=== PATIENT | female | born 1975 | race Caucasian/White ===

== ENCOUNTER → 2020-03-13 12:51 | Outpatient (CLI) | payer OTHER, SELFPAY ==
--- NOTE | ~2020-03-13 | MM_ITS ---
EXAMINATION: MM screening [facility] BI w neil HISTORY: Screening TECHNIQUE: Craniocaudal and mediolateral oblique 3-D tomosynthesis images were obtained and synthetic 2-D images were generated. CAD analysis was submitted and interpreted. COMPARISON: Comparison to multiple prior studies sequentially, with oldest reviewed study dated 12/2018. BREAST PARENCHYMAL COMPOSITION: There are scattered areas of fibroglandular density. FINDINGS: There is no evidence of suspicious mass, calcification, or architectural distortion to sugg est malignancy in either breast. There has been no suspicious interval change. IMPRESSION: 1. No mammographic evidence of malignancy. 2. Recommend routine screening mammography in one year. BI-RADS Category 2: Benign finding(s). Reviewed, dictated and finalized at location A.
== END ==
PROVIDERS: PCP Internal Medicine; Visit Provider Obstetrics & Gynecology
DX: Z12.31 Encounter for screening mammogram for malignant neoplasm of breast (principal)
CPT/HCPCS: 77063; 77067

== ENCOUNTER 2020-08-16 08:30 | Outpatient (CLI) | payer OTHER, SELFPAY ==
--- NOTE | 2020-08-17 12:30 | WPDHOLTEREM ---
Holter/Event Monitor Holter/Event Monitor Date of procedure: 08/16/20 Procedure Type: 24 hour holter monitor Indications: Palpitations Conclusion: 1. 24 hour holter monitor on 08/16/20. 2. Underlying rhythm is sinus rhythm. HR range 54-136 bpm; average HR 84 bpm. 3. No premature supraventricular complexes. No supraventricular tachycardia. 4. There are 470 premature ventricular complexes and 29 ventricular trigeminy. No ventricular tachycardia. 5. No sinoatrial or atrioventricular blocks. No significant pauses greater than 2 seconds. 6. Patient reports symptoms of flutter which demonstrate sinus rhythm, HR range 70-112 bpm.
== END 2020-08-16 08:31 | disposition home or self-care (01) ==
PROVIDERS: PCP Internal Medicine; Visit Provider Physician Assistant
DX: R00.2 Palpitations (principal)
CPT/HCPCS: 93225; 93226

== ENCOUNTER → 2021-04-02 16:18 | Outpatient (CLI) | payer BC, SELFPAY ==
--- NOTE | ~2021-04-02 | MM_ITS ---
EXAMINATION: MM screening [facility] BI w neil HISTORY: Screening TECHNIQUE: Craniocaudal and mediolateral oblique 3-D tomosynthesis images were obtained and synthetic 2-D images were generated. CAD analysis was submitted and interpreted. COMPARISON: Comparison to multiple prior studies sequentially, with oldest reviewed study dated 12/2018. BREAST PARENCHYMAL COMPOSITION: There are scattered areas of fibroglandular density. FINDINGS: There is no evidence of suspicious mass, calcification, or architectural distortion to sugg est malignancy in either breast. There has been no suspicious interval change. IMPRESSION: 1. No mammographic evidence of malignancy. 2. Recommend routine screening mammography in one year. BI-RADS Category 1: Negative Reviewed, dictated and finalized at location A.
== END ==
PROVIDERS: PCP Internal Medicine; Visit Provider Obstetrics & Gynecology
DX: Z12.31 Encounter for screening mammogram for malignant neoplasm of breast (principal)
CPT/HCPCS: 77063; 77067

== ENCOUNTER 2021-05-01 09:53 | Outpatient (CLI) | payer BC, SELFPAY ==
--- NOTE | 2021-05-01 12:00 | NEURO_ITS ---
Impression: # Complains of numbness of hands; History of cervical surgery. # Mild bilateral Carpal Tunnel Syndrome. # Left ulnar neuropathy across the elbow. # Normal needle/EMG exam. Nerve Conduction Studies Anti Sensory Summary Table Stim Site NR Peak (ms) P-T Amp (?V) Site1 Site2 Delta-P (ms) Dist (cm) Jules (m/s) Left Median Anti Sensory (2-3nd Digit) Wrist 3.4 74.9 Wrist 2-3nd Digit 3.4 14.0 41 Wrist 3.4 87.5 Wrist 2-3nd Digit 3.4 14.0 41 Right Median Anti Sensory (2-3nd Digit) Wrist 3.1 73.9 Wrist 2-3nd Digit 3.1 14.0 45 Wrist 3.1 46.1 Wrist 2-3nd Digit 3.1 14.0 45 Left Radial Anti Sensory (Base 1st Digit) Wrist 2.1 28.5 Wrist Base 1st Digit 2.1 0.0 Right Radial Anti Sensory (Base 1st Digit) Wrist 2.2 19.3 Wrist Base 1st Digit 2.2 0.0 Left Ulnar Anti Sensory (5th Digit) Wrist 2.4 87.3 Wrist 5th Digit 2.4 14.0 58 Right Ulnar Anti Sensory (5th Digit) Wrist 2.3 37.4 Wrist 5th Digit 2.3 14.0 61 Motor Summary Table Stim Site NR Onset (ms) O-P Amp (mV) Site1 Site2 Delta-0 (ms) Dist (cm) Jules (m/s) Left Median Motor (Abd Poll Brev) Wrist 4.0 2.7 Elbow Wrist 4.4 28.0 64 Elbow 8.4 5.6 Right Median Motor (Abd Poll Brev) Wrist 4.0 3.1 Elbow Wrist 4.4 28.0 64 Elbow 8.4 4.5 Left Ulnar Motor (Abd Dig Minimi) Wrist 2.7 7.9 A Elbow Wrist 6.4 27.0 42 A Elbow 9.1 5.0 B Elbow Wrist 4.5 24.0 53 B Elbow 7.2 5.2 Right Ulnar Motor (Abd Dig Minimi) Wrist 2.8 8.5 A Elbow Wrist 4.9 29.0 59 A Elbow 7.7 4.4 F Wave Studies NR F-Lat (ms) L-R F-Lat (ms) Left Median (Mrkrs) (Abd Poll Brev) 27.82 0.78 Right Median (Mrkrs) (Abd Poll Brev) 27.04 0.78 Left Ulnar (Mrkrs) (Abd Dig Min) 27.45 0.96 Right Ulnar (Mrkrs) (Abd Dig Min) 26.48 0.96 EMG Side Muscle Nerve Root Ins Act Fibs Amp Dur Recrt Comment Right 1stDorInt Ulnar C8-T1 Nml Nml Nml Nml Nml Right Ext Indicis Radial (Post Int) C7-8 Nml Nml Nml Nml Nml Right Ext Digitorum Radial (Post Int) C7-8 Nml Nml Nml Nml Nml Right BrachioRad Radial C5-6 Nml Nml Nml Nml Nml Right PronatorTeres Median C6-7 Nml Nml Nml Nml Nml Right Abd Poll Brev Median C8-T1 Nml Nml Nml Nml Nml Left 1stDorInt Ulnar C8-T1 Nml Nml Nml Nml Nml Left Ext Indicis Radial (Post Int) C7-8 Nml Nml Nml Nml Nml Left Ext Digitorum Radial (Post Int) C7-8 Nml Nml Nml Nml Nml Left BrachioRad Radial C5-6 Nml Nml Nml Nml Nml Left PronatorTeres Median C6-7 Nml Nml Nml Nml Nml Left Abd Poll Brev Median C8-T1 Nml Nml Nml Nml Nml MTDD
== END 2021-05-01 09:54 | disposition home or self-care (01) ==
PROVIDERS: PCP Internal Medicine; Visit Provider Physician Assistant
DX: R20.2 Paresthesia of skin (principal); G56.03 Carpal tunnel syndrome, bilateral upper limbs; G56.22 Lesion of ulnar nerve, left upper limb
CPT/HCPCS: 95886; 95911

== ENCOUNTER 2021-07-08 14:02 | Outpatient (CLI) | payer BC, SELFPAY ==
[2021-07-08 15:09] LABS: SARS-CoV-2 RNA PCR Positive (Negative)
== END 2021-07-08 14:03 | disposition home or self-care (01) ==
LOC: CHSLAB 14:04
PROVIDERS: PCP Internal Medicine; Visit Provider Internal Medicine
DX: U07.1 COVID-19 (principal); R43.2 Parageusia
CPT/HCPCS: C9803; U0003; U0005

== ENCOUNTER 2021-07-11 07:41 | Outpatient (RCR) | payer BC, SELFPAY ==
[2021-07-11 10:04] VITALS: BP 118/84; PULSE 85; RESP 20; TEMP 36.8; O2SAT 100
[2021-07-11] MEDS: FAMOTIDINE 20 MG TABLET PO (10:05)
[2021-07-11] MEDS: ACETAMINOPHEN 325 MG TABLET 650 MG PO (10:05)
[2021-07-11] MEDS: diphenhydrAMINE HCl CAP 25 MG CAPSULE PO (10:05)
[2021-07-11 11:34] VITALS: BP 131/79
--- NOTE | 2021-07-12 08:48 | PC.NURSE ---
Called Jw ang she stated she is not feeling much different than yesterday. She has no questions at this time.
== END 2021-07-11 17:00 ==
LOC: AMCINF 07:41
PROVIDERS: PCP Internal Medicine; Visit Provider Internal Medicine Hematology & Oncology
DX: U07.1 COVID-19 (principal)
CPT/HCPCS: A9270; M0245; Q0245

== ENCOUNTER → 2021-12-16 07:57 | Outpatient (CLI) | payer BC, SELFPAY ==
--- NOTE | ~2021-12-16 | US_ITS ---
EXAMINATION: US thyroid DATE: 12/16/2021 08:36 INDICATION: Nontoxic single thyroid nodule. TECHNIQUE: Multiple ultrasound images of the thyroid were obtained. COMPARISON: Ultrasound 10/04/2018 FINDINGS: The right thyroid lobe measures 5.6 x 1.3 x 1.6 cm. The left thyroid lobe measures 6.6 x 1.4 x 1.4 c m. In the left thyroid lobe, there are 3 mm and 4 mm nodules. In the right thyroid lobe, there is a 6 mm solid, isoechoic, [id number]-lhap-[id number] nodule with ill-defined margin without echogenic foci (TI-RADS TR3). In the right thyroid lobe, there is a 3 mm nodule. IMPRESSION: 1. Small thyroid nodules, likely not clinically significant. No follow-up is needed. Reviewed, dictated and finalized at location B. IMPRESSION: 1. Small thyroid nodules, likely not clinically significant. No follow-up is ne eded.
== END ==
PROVIDERS: PCP Internal Medicine; Visit Provider Internal Medicine
DX: E04.1 Nontoxic single thyroid nodule (principal)
CPT/HCPCS: 76536

== ENCOUNTER → 2022-06-23 13:21 | Outpatient (CLI) | payer BC, SELFPAY ==
--- NOTE | ~2022-06-23 | MM_ITS ---
EXAMINATION: MM screening [facility] BI w neil HISTORY: Screening mammogram TECHNIQUE: Craniocaudal and mediolateral oblique 3-D tomosynthesis images were obtained and synthetic 2-D images were generated. CAD analysis was submitted and interpreted. COMPARISON: 04/02/2021, 03/13/2020 bilateral screening mammogram examinations 09/23/2018, complete right breast ultrasound BREAST PARENCHYMAL COMPOSITION: There are scattered areas of fibroglandular density. FINDINGS: Stable probable intramammary lymph node, outer mid right breast, unchanged since 09/23/2018. There is no evidence of suspicious mass, calcification, or architectural distortion to suggest malig susana in either breast. There has been no suspicious interval change. IMPRESSION: 1. No mammographic evidence of malignancy. 2. Recommend routine screening mammography in one year. BI-RADS Category 2: Benign finding(s). Reviewed, dictated and finalized at location A. HIATRIC REGISTERED NURSE
== END ==
PROVIDERS: PCP Internal Medicine; Visit Provider Obstetrics & Gynecology
DX: Z12.31 Encounter for screening mammogram for malignant neoplasm of breast (principal)
CPT/HCPCS: 77063; 77067

== ENCOUNTER 2023-08-18 12:23 | Outpatient (CLI) | payer BC, SELFPAY ==
--- NOTE | ~2023-08-18 | MM_ITS ---
EXAMINATION: MM screening [facility] BI w neil HISTORY: Screening TECHNIQUE: Craniocaudal and mediolateral oblique 3-D tomosynthesis images were obtained and synthetic 2-D images were generated. CAD analysis was submitted and interpreted. COMPARISON: Comparison to multiple prior studies sequentially, with oldest reviewed study dated 12/2018. BREAST PARENCHYMAL COMPOSITION: Breast composed of scattered areas of fibroglandular density FINDINGS: There is no evidence of suspicious mass, calcification, or architectural distortion to sugg est malignancy in either breast. There has been no suspicious interval change. IMPRESSION: 1. No mammographic evidence of malignancy. 2. Recommend routine screening mammography in one year. BI-RADS Category 1: Negative Reviewed, dictated and finalized at location A. RPRISE INTEGRATION ARCHITECT
== END 2023-08-18 12:24 | disposition home or self-care (01) ==
LOC: CHSIMG 12:25
PROVIDERS: PCP Internal Medicine; Visit Provider Obstetrics & Gynecology
DX: Z12.31 Encounter for screening mammogram for malignant neoplasm of breast (principal)
CPT/HCPCS: 77063; 77067

== ENCOUNTER 2024-01-22 14:38 | Outpatient (CLI) | payer BC, SELFPAY ==
--- NOTE | ~2024-01-22 | XR_ITS ---
EXAMINATION: XR lumbar spine 2-3V DATE: 01/22/2024 15:00 INDICATION: Low back pain. TECHNIQUE: 3 views of lumbar spine were obtained. COMPARISON: None. FINDINGS: Bone alignment is normal. Vertebral body heights are normal. There is mildly decreased disc height at L3-L4 and L4-L5 and moderately decreased disc height at L5-S1. There is multilevel facet j oint osteoarthritis, moderate in lower lumbar spine. There is an intrauterine device in expected posi tion. IMPRESSION: 1. Moderate lumbar spondylosis. Reviewed, dictated and finalized at location E.
== END 2024-01-22 14:39 | disposition home or self-care (01) ==
LOC: CHSIMG 14:40
PROVIDERS: PCP Internal Medicine; Visit Provider Internal Medicine
DX: M54.9 Dorsalgia, unspecified (principal); M43.06 Spondylolysis, lumbar region
CPT/HCPCS: 72100

== ENCOUNTER 2024-03-15 08:26 | Outpatient (CLI) | payer OTHER, SELFPAY ==
--- NOTE | ~2024-03-15 | US_ITS ---
EXAMINATION: US thyroid DATE: 03/15/2024 08:50 INDICATION: Multiple thyroid nodules. TECHNIQUE: Multiple ultrasound images of the thyroid were obtained. COMPARISON: Ultrasound 12/16/2021 FINDINGS: The right thyroid lobe measures 5.2 x 1.4 x 1.5 cm. The left thyroid lobe measures 5.8 x 1.5 x 1.2 c m. In the right thyroid lobe, there is a 6 mm solid, isoechoic, wider than tall nodule with irregula r margin without echogenic foci (TI-RADS TR4). In the left thyroid lobe, there is a 5 mm almost entir narendra cystic nodule (TR1). In the left thyroid lobe, there is a 4 mm nodule. IMPRESSION: 1. Small thyroid nodules, likely not clinically significant. No follow-up is needed. Reviewed, dictated and finalized at location A. IMPRESSION: 1. Small thyroid nodules, likely not clinically significant. No follow-up is ne eded.
== END 2024-03-15 08:27 | disposition home or self-care (01) ==
LOC: CHSIMG 08:29
PROVIDERS: PCP Registered Nurse; Visit Provider Nurse Practitioner Family
DX: E04.2 Nontoxic multinodular goiter (principal)
CPT/HCPCS: 76536

== ENCOUNTER 2024-08-31 08:21 | Outpatient (CLI) | payer OTHER, SELFPAY ==
--- NOTE | ~2024-08-31 | MM_ITS ---
EXAMINATION: MM screening [facility] BI w neil HISTORY: Screening TECHNIQUE: Craniocaudal and mediolateral oblique 3-D tomosynthesis images were obtained and synthetic 2-D images were generated. CAD analysis was submitted and interpreted. COMPARISON: Comparison to multiple prior studies sequentially, with oldest reviewed study dated 12/2018. BREAST PARENCHYMAL COMPOSITION: Not dense: There are scattered areas of fibroglandular density. FINDINGS: There is no evidence of suspicious mass, calcification, or architectural distortion to sugg est malignancy in either breast. There has been no suspicious interval change. IMPRESSION: 1. No mammographic evidence of malignancy. 2. Recommend routine screening mammography in one year. BI-RADS Category 1: Negative Reviewed, dictated and finalized at location A. SH VISITOR
== END 2024-08-31 08:22 | disposition home or self-care (01) ==
LOC: CHSIMG 08:22
PROVIDERS: PCP Registered Nurse; Visit Provider Obstetrics & Gynecology
DX: Z12.31 Encounter for screening mammogram for malignant neoplasm of breast (principal)
CPT/HCPCS: 77063; 77067

== ENCOUNTER 2024-09-14 07:26 | Outpatient (CLI) | payer OTHER, SELFPAY ==
--- NOTE | ~2024-09-14 | US_ITS ---
EXAMINATION: US thyroid DATE: 09/14/2024 08:18 INDICATION: Multiple thyroid nodules. TECHNIQUE: Multiple ultrasound images of the thyroid were obtained. COMPARISON: Thyroid ultrasound 03/15/2024, 10/04/2018 FINDINGS: The right thyroid lobe measures 4.3 x 1.2 x 1.4 cm. The left thyroid lobe measures 3.7 x 1.3 x 1.1 c m. In the left thyroid lobe, there is a 6 mm mixed cystic and solid, isoechoic, wider than tall nodu le with ill-defined margin without echogenic foci (TI-RADS TR2). In the right thyroid lobe, there is an 8 mm solid, hypoechoic, wider than tall nodule with ill-defined margin without echogenic foci (TR4 ). IMPRESSION: 1. Small thyroid nodules, likely not clinically significant. No follow-up is needed. Reviewed, dictated and finalized at location A. HERMAL PRODUCTION MANAGER IMPRESSION: 1. Small thyroid nodules, likely not clinically significant. No follow-up is ne eded.
--- OUTSIDE RECORDS SUMMARY | 2024-09-14 07:33 | XMS_ITS | Patient Health Summary ---
Author Organization [facility] [employer] Address [facility] [place] [address] Care Team Providers Care Grain Blender Name Role Phone Sweetie Schaefer MD Primary Care Provider [phone] Note from [facility],non-owned Affiliates and Associated Physician Practices is amultiple site organization consisting of ambulatory clinics and hospital sitesin [place], [place], [place] and [place]. This disclosure is being madepursuant to the Care Everywhere program and may not contain all information available regarding this patient. Last updated 18.[facility] [employer] Allergies * Penicillins Medications Be aware that medications may not be up to date on this document. Always verify current medications with the patient. No known medications Social History Tobacco Use Types Packs/Day Years Used Date Smoking Tobacco: Never Sex and Gender Information Value Date Recorded Sex Assigned at Not on file Gender Identity Not on file Sexual Orientation Not on file Last Filed Vital Signs Vital Sign Reading Time Taken Comments Blood Pressure 114/78 08/14/2016 11:45 AM ANGIOGRAPHY NURSE Pulse 89 08/14/2016 11:45 AM ANGIOGRAPHY NURSE Temperature 36.8 C (98.3 F) 08/14/2016 11:45 AM ANGIOGRAPHY NURSE Respiratory Rate 16 08/14/2016 11:45 AM ANGIOGRAPHY NURSE Oxygen Saturation 99% 08/14/2016 11:45 AM ANGIOGRAPHY NURSE Inhaled Oxygen Concentration - - Weight 78.9 kg (174 lb) 08/14/2016 11:45 AM ANGIOGRAPHY NURSE Height 180.3 cm (5' 11 ) 08/14/2016 11:45 AM ANGIOGRAPHY NURSE Body Mass Index 24.27 08/14/2016 11:45 AM ANGIOGRAPHY NURSE Procedures * STREP A SCREEN - POINT OF CARE (AMB) STL(Performed 08/14/2016) Performed for Acute pharyngitis, unspecified etiology Results * STREP A SCREEN (08/14/2016) Strep A Rapid POCT Negative Negative Strep A Internal Control Present Lot # [id number] Expiration Date [id number] Throat ENTIRE THROAT (SURFACE REGION OF NECK) / Unknown 08/14/2016 Dave Pedraza SUPERVISOR ELECTRONIC TESTING-ELECTRICAL AND INSTRUMENTATION MECHANIC LAB - POINT OF CARE ORDERABLES Care Teams Grain Blender Relationship Specialty Start Date End Date Sweetie Schaefer MD [address], [place] [id number] PCP - General Surgery 08/14/16
--- OUTSIDE RECORDS SUMMARY | 2024-09-14 07:33 | XMS_ITS | Referral Summary ---
Author Organization [facility] [employer] Address [facility] [facility] [place] [address] Care Team Providers Care Inspector Machine Cut Glass Name Role Phone Sweetie Schaefer MD Primary Care Provider [phone] Source Comments [facility] [employer],non-owned Affiliates and Associated Physician Practices is amultiple site organization consisting of ambulatory clinics and hospital sitesin [place], [place], [place] and [place]. This disclosure is being madepursuant to the Care Everywhere program and may not contain all information available regarding this patient. Last updated 18.[facility] [employer] Allergies Active Allergy Reactions Criticality Noted Date Comments Penicillins 08/14/2016 Medications Be aware that medications may not [...] Comments Blood Pressure 114/78 08/14/2016 11:45 AM CHEESE SPECIALIST Pulse 89 08/14/2016 11:45 AM CHEESE SPECIALIST Temperature 36.8 C (98.3 F) 08/14/2016 11:45 AM CHEESE SPECIALIST Respiratory Rate 16 08/14/2016 11:45 AM CHEESE SPECIALIST Oxygen Saturation 99% 08/14/2016 11:45 AM CHEESE SPECIALIST Inhaled Oxygen Concentration - - Weight 78.9 kg (174 lb) 08/14/2016 11:45 AM CHEESE SPECIALIST Height 180.3 cm (5' 11 ) 08/14/2016 11:45 AM CHEESE SPECIALIST Body Mass Index 24.27 08/14/2016 11:45 AM CHEESE SPECIALIST Plan of Treatment Not on file Care Teams Inspector Machine Cut Glass Relationship Specialty Start Date End Date Sweetie Schaefer MD [address] [place] [address] PCP - General Surgery 08/14/16
--- OUTSIDE RECORDS SUMMARY | 2024-09-14 07:33 | XMS_ITS | Clinical Summary ---
Author Organization [facility] [address] Address [address] [place] [address] Care Team Providers Care Makeup Sales Consultant Name Role Phone Ramana Wilson MD Primary Care Provider Allergies Active Allergy Reactions Criticality Noted Date Comments Penicillins Anaphylaxis High 08/14/2016 Medications [id number] i-Llzglsyl-veb al 27 mg iron-1.13 mg-581.92 mg capsule Take by mouth Active cetirizine (ZyrTEC) 10 mg tablet Take 1 tablet (10 mg total) by mouth daily Active levonorgestreL (MIRENA) IUD Mirena 20 mcg/24 hours (6 yrs) 52 mg intrauterine device Take 1 device by intrauterine route. Active metoprolol XL (TOPROL-XL) 25 mg extended release tablet Take 1 tablet (25 mg total) by mouth daily Active Estarylla 0.25-35 mg-mcg per tablet 2 Active cyanocobalamin -cobamamide (B-12 Plus) 5,000-100 mcg tablet, sublingual 4 Active cyclobenzaprin e (FLEXERIL) 5 mg tablet 4 Active DICLOFENAC POTASSIUM ORAL [address] (VOLTAREN) 50 mg EC tablet 4 Active magnesium gluconate (MAGONATE) 27.5 mg magne- sium (500 mg) tabletIndicati ons:hypomagnes emia Take 1 tablet (500 mg total) by mouth nightly Active spironolactone (ALDACTONE) 100 mg tabletIndicati ons:Multiple thyroid nodules,Hair loss Take 1 tablet (100 mg total) by mouth daily 90 tablet 3 5 026 Active phentermine (ADIPEX-P) 37.5 mg tablet Take 1 tablet (37.5 mg total) by mouth daily before breakfast 90 tablet 1 5 Active phentermine (ADIPEX-P) 37.5 mg tablet TAKE ONE TABLET BY MOUTH DAILY BEFORE BREAKFAST 30 tablet 4 4 025 Discontin ued(Reord er) spironolactone (ALDACTONE) 100 mg tabletIndicati ons:Multiple thyroid nodules TAKE ONE TABLET BY MOUTH DAILY 30 tablet 2 4 025 Discontin ued(Reord er) phentermine (ADIPEX-P) 37.5 mg tablet Take 1 tablet (37.5 mg total) by mouth daily before breakfast 30 tablet 5 025 Discontin ued(Reord er) Active Problems Problem Noted Date Diagnosed Date Medication side effects 02/24/2023 Hair loss 02/04/2022 Assessment & Plan (09/09/2024 9:52 AM MARKETING SYSTEMS ANALYST): Chronic problem. Will continue spironolactone 100mg daily. Assessment & Plan (03/09/2024 9:48 AM CDT): Chronic problem. No balding spots, thinning at temples. Will continue spironolactone 100mg daily. Assessment & Plan (05/19/2023 4:39 PM CDT): Continue spironolactone Assessment & Plan (11/12/2022 5:13 PM CDT): Continue spironolactone Assessment & Plan (06/17/2022 2:36 PM MARKETING SYSTEMS ANALYST): Continue aldactone Assessment & Plan (03/02/2022 7:18 PM CDT): Will check androgen levels including total testosterone, as well a DHEA and DHEA-S. Also will check serum cortisol levels. Will consider the use of spironolactone Class 1 obesity due to exces s calories without serious comorbidity with body mass index (BMI) of 31.0 to 31.9 in adult 02/04/2022 Assessment & Plan (09/09/2024 9:51 AM MARKETING SYSTEMS ANALYST): Chronic problem. Improved BMI to now 27.26 with daily phentermine 37.5mg daily. Does not go to gym but walks regularly. 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 Discussed importance of regular physical activity (20-30min/day, 150min/wk). No changes. Will continue phentermine 37.5mg daily Assessment & Plan (03/09/2024 9:49 AM CDT): Chronic problem. Improved BMI to now 25.26 with daily phentermine 37.5mg daily. Does not go to gym but walks regularly. 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 Reports that she's more conscious of eating now that she's lost weight. No changes. Will continue phentermine 37.5mg daily Assessment & Plan (05/19/2023 4:39 PM CDT): Diet and exercise Continue phentermine Assessment & Plan (11/12/2022 5:13 PM CDT): Continue diet and exercise Continue phentermine Assessment & Plan (06/17/2022 2:36 PM MARKETING SYSTEMS ANALYST): Continue working on diet and exercise Will try phentermine Assessment & Plan (03/02/2022 7:18 PM CDT): Patient was encouraged to work on diet and exercise 1500 calorie diet advised I also advised the patient to track calories and physical activity with a smart phone cory. like my fitness Pal or [employer] Will check hemoglobin A1c, lipid profile, hepatic function test looking for for insulin resistance I will consider the use of weight loss medication like phentermine Multiple thyroid nodules 02/04/2022 Assessment & Plan (09/09/2024 9:51 AM MARKETING SYSTEMS ANALYST): Chronic problem. Reviewed US thyroid on 03/2024 on her phone; no changes since 03/2022 US. Will update TFTs today. Verified that she uses [employer]. Aware to check results/results letter in [employer]. Will contact by phone if needed. Assessment & Plan (03/09/2024 9:47 AM CDT): Reports newer issues with occasional dysphagia. No US imaging in chart; reports she had US completed pre-Covid at [facility]. Will sign release to get copy of record. Order entered to have US thyroid repeated at [facility]. Aware to call to schedule. Will send [employer] message if she's not rec'd results via [employer] after test completed (as we may not have rec'd results). Will update TFTs today. Verified that she uses [employer]. Aware to check results/results letter in [employer]. Will contact by phone if needed. Assessment & Plan (02/04/2022 4:06 PM CDT): Small, of no clinical significance Mixed hyperlipidemia 08/23/2021 Palpitations 08/30/2020 PVC's (premature ventricular contractions) 08/30 SOB (shortness of breath) 08/30/2020 Resolved Problems Problem Noted Date Diagnosed Date Resolved Date Dyslipidemia 08/30/2020 08/23/2021 Encounters Date Type Department Care Team Description 09/12/2024 Orders Only [facility] Medical [facility] [address] [place] [address] [phone] Keren Casas, AMY Multiple thyroid nodules 09/09/2024 9:00 AM MARKETING SYSTEMS ANALYST Office Visit [facility] Medical [facility] [address] [place] [address] [phone] Keren Casas NP Multiple thyroid nodules (Primary Dx); Hair loss; Class 1 obesity due to excess calories without serious comorbidity with body mass index (BMI) of 31.0 to 31.9 in adult 09/09/2024 Telephone [facility] [address] [place] [address] [phone] Keren Casas, AMY Lab Order and US Report from Last 3 Months Surgical History Surgery Date Site/Laterality Comments APPENDECTOMY WISDOM TOOTH EXTRACTION FOOT SURGERY NECK SURGERY SPINE SURGERY May 2020 Medical History Medical History Date Comments Seasonal allergies Anxiety Family History Medical History Relation Name Comments Allergy (severe) Daughter Daylin Learning disabilities Daughter Daylin Alcohol abuse Father Silvestre Hypertension Father Silvestre Diabetes Maternal Grandfather Herman Hearing loss Maternal Grandfather Herman Heart attack Maternal Grandfather Herman Cancer Maternal Grandmother Ernesto Abbott Atrial fibrillation Mother Kirill Lora Diabetes Mother Kirill Lora Hearing loss Mother Kirill Lora Hearing loss Paternal Grandfather Román Stroke Paternal Grandfather Román Cancer Paternal Grandmother Mena Relation Name Status Comments Daughter Daylin Father Silvestre Alive Maternal Grandfather Herman Maternal Grandmother Ernesto Abbott Mother Kirill Lora Alive Paternal Grandfather Román Paternal Grandmother Mena Sister Alive Social History Tobacco Use Types Packs/Day Years Used Date Smoking Tobacco: Former Cigarettes Q uit: 04/03/1996 Smokeless Tobacco: Never Tobacco Cessation:Counseling Given: Not Answered Alcohol Use Standard Drinks/Week Comments Yes 0 (1 standard drink = 0.6 oz pur e alcohol) PHQ-2 Answer Date Recorded PHQ-2 Total Score (If total score is 3 or more points, staff should administer the PHQ-9) 0 02/04/2022 Comments Unknown Sex and Gender Information Value Date Recorded Sex Assigned at Not on file Legal Sex Female 12:06 PM MARKETING SYSTEMS ANALYST Gender Identity Not on file Sexual Orientation Not on file Obstetrics History Last Filed Vital Signs Vital Sign Reading Time Taken Comments Blood Pressure 110/82 09/09/2024 8:54 AM MARKETING SYSTEMS ANALYST Pulse 83 09/09/2024 8:54 AM MARKETING SYSTEMS ANALYST Temperature - - Respiratory Rate 14 09/09/2024 8:54 AM MARKETING SYSTEMS ANALYST Oxygen Saturation 99% 03/22/2024 1:05 PM CDT Inhaled Oxygen Concentration - - Weight 86.2 kg (190 lb) 09/09/2024 8:54 AM MARKETING SYSTEMS ANALYST Height 177.8 cm (5' 10 ) 09/09/2024 8:54 AM MARKETING SYSTEMS ANALYST Body Mass Index 27.26 09/09/2024 8:54 AM MARKETING SYSTEMS ANALYST Plan of Treatment Health Maintenance Due Date Last Done Comments Breast Cancer Screening-Mammogram 1976 Cervical Cancer Screening 1976 Colon Cancer Screening-Colonoscopy 1976 Hepatitis C Screening 1976 DTaP/Tdap/Td Vaccine (1 - Tdap) 1987 Hepatitis B Screening 1994 Regular Well Visit/Exam 18-64 1994 Depression Screening 02/04/2023 02/04/2022 Influenza Vaccine (#1) 2024 05/03/2017 Pneumococcal vaccine <65 Aged Out No longer eligible based on patient's age to complete this topic Insurance [facility] [id number] Care Teams Makeup Sales Consultant Relationship Specialty Start Date End Date Ramana Wilson MD [address] [place] [address] [id number] PCP - General Family Medicine 09/08/24
--- OUTSIDE RECORDS SUMMARY | 2024-09-14 07:34 | XMS_ITS | Referral Summary ---
Author Organization [facility] [address] [facility] [address] Address [address] [place] [address] Care Team Providers Care Binitrotoluene Operator Name Role Phone Ramana Wilson MD Primary Care Provider Encounters Date Type Department Care Team Description 09/12/2024 Orders Only [facility] Medical [facility] Diabetes and Endocrinology [address] [place] [phone] Keren Casas NP Multiple thyroid nodules 09/09/2024 Telephone [facility] Medical [facility] Diabetes and Endocrinology [address] [place] [phone] Keren Casas NP Lab Order and US Report 09/09/2024 9:00 AM MANAGER PRODUCE Office [facility] Diabetes and Endocrinology [address] [place] [phone] Keren Casas NP Multiple thyroid nodules (Primary Dx); Hair loss; Class 1 obesity due to excess calories without serious comorbidity with body mass index (BMI) of 31.0 to 31.9 in adult from Last 3 Months Allergies Active Allergy Reactions Criticality Noted Date Comments Penicillins Anaphylaxis High 08/14/2016 Medications [id number] e-[id number] al 27 mg iron-1.13 mg-581.92 mg capsule [...] 02/04/2022 Assessment & Plan (09/09/2024 9:52 AM MANAGER PRODUCE): Chronic problem. Will continue spironolactone 100mg daily. Assessment & Plan (03/09/2024 9:48 AM CDT): Chronic problem. No balding spots, thinning at temples. Will continue spironolactone 100mg daily. Assessment & Plan (05/19/2023 4:39 PM CDT): Continue spironolactone Assessment & Plan (11/12/2022 5:13 PM CDT): Continue spironolactone Assessment & Plan (06/17/2022 2:36 PM MANAGER PRODUCE): Continue aldactone Assessment & Plan (03/02/2022 7:18 PM CDT): Will check androgen levels including total testosterone, as well a DHEA and DHEA-S. Also will check serum cortisol levels. Will consider the use of spironolactone Class 1 obesity due to exces s calories without serious comorbidity with body mass index (BMI) of 31.0 to 31.9 in adult 02/04/2022 Assessment & Plan (09/09/2024 9:51 AM MANAGER PRODUCE): Chronic problem. Improved BMI to now 27.26 [...] phentermine Assessment & Plan (06/17/2022 2:36 PM MANAGER PRODUCE): Continue working on diet and exercise Will [...] 02/04/2022 Assessment & Plan (09/09/2024 9:51 AM MANAGER PRODUCE): Chronic problem. Reviewed US thyroid on 03/2024 on her phone; no changes since 03/2022 US. Will update TFTs today. Verified that she uses [employer]. Aware to check results/results letter in [employer]. Will contact by phone if needed. Assessment & Plan (03/09/2024 9:47 AM CDT): Reports newer issues with occasional dysphagia. No US imaging in chart; reports she had US completed pre-Covid at [facility]. Will sign release to get copy of record. Order entered to have US thyroid repeated at [facility]. Aware to call to schedule. Will send [employer] message if she's not rec'd results via [employer] after test completed (as we may not have rec'd results). Will update TFTs today. Verified that she uses [employer]. Aware to check results/results letter in [employer]. Will contact by phone if needed. Assessment & Plan (02/04/2022 4:06 PM CDT): Small, of no clinical significance Mixed hyperlipidemia 08/23/2021 Palpitations 08/30/2020 PVC's (premature ventricular contractions) 08/30 SOB (shortness of breath) 08/30/2020 Resolved Problems Problem Noted Date Diagnosed Date Resolved Date Dyslipidemia 08/30/2020 08/23/2021 Social History Tobacco Use Types Packs/Day Years [...] on file Legal Sex Female 12:06 PM MANAGER PRODUCE Gender Identity Not on file Sexual Orientation Not on file Last Filed Vital Signs Vital Sign Reading Time Taken Comments Blood Pressure 110/82 09/09/2024 8:54 AM MANAGER PRODUCE Pulse 83 09/09/2024 8:54 AM MANAGER PRODUCE Temperature - - Respiratory Rate 14 09/09/2024 8:54 AM MANAGER PRODUCE Oxygen Saturation 99% 03/22/2024 1:05 PM CDT Inhaled Oxygen Concentration - - Weight 86.2 kg (190 lb) 09/09/2024 8:54 AM MANAGER PRODUCE Height 177.8 cm (5' 10 ) 09/09/2024 8:54 AM MANAGER PRODUCE Body Mass Index 27.26 09/09/2024 8:54 AM MANAGER PRODUCE Plan of Treatment Not on file Insurance [facility] [id number] [employer] H[employer]PPO Address: [facility] [id number] [place] [address] [place] [address] Care Teams Binitrotoluene Operator Relationship Specialty Start Date End Date Ramana Wilson MD [address] [place] [address] PCP - General Family Medicine 09/08/24
--- OUTSIDE RECORDS SUMMARY | 2024-09-14 07:34 | XMS_ITS | Encounter Summary ---
Author Organization [facility] Healthcare Address [address] [place] [address] Care Team Providers Care Network Support Technician Name Role Phone Ramana Wilson MD Primary Care Provider [phone] Encounter Details Date Type Department Care Team (Late st Contact Info) Description 09/12/2024 Orders Only [facility] Medical Group Diabetes and Endocrinology [address] [place] [phone] Keren Casas HOME SERVICE TECHNICIAN [address] [facility] [address] [place], [place] [id number] Multiple thyroid nodules Social History Tobacco Use Types Packs/Day Years Used Date Smoking Tobacco: Former Cigarettes Q uit: 04/03/1996 Smokeless Tobacco: Never Alcohol Use Standard Drinks/Week Comments Yes 0 (1 standard drink = 0.6 oz pur e alcohol) PHQ-2 Answer Date Recorded PHQ-2 Total Score (If total score is 3 or more points, staff should administer the PHQ-9) 0 02/04/2022 Comments Unknown Sex and Gender Information Value Date Recorded Sex Assigned at Not on file Legal Sex Female 12:06 PM CONSTRUCTION ASSISTANT Gender Identity Not on file Sexual Orientation Not on file documented as of this encounter Plan of Treatment Not on file documented as of this encounter Procedures Procedure Name Priority Date/Time Associated Diagnosis Comments US THYROID Schedule Routine, Read Routine (OP Routine) 03/15/2024 8:50 AM CDT Multiple thyroid nodules documented in this encounter Results * US Thyroid (03/15/2024 8:50 AM CDT) Anatomical Region Laterality Modality Head and Neck N/A Ultrasound 03/15/2024 8:50 AM CDT Impressions 03/15/2024 10:27 AM CDT See attached report us Keren Casas HOME SERVICE TECHNICIAN IMG US PROCEDURES Edited Result - Final documented in this encounter Visit Diagnoses Diagnosis Multiple thyroid nodules Nontoxic multinodular goiter documented in this encounter Care Teams Network Support Technician Relationship Specialty Start Date End Date Ramana Wilson MD [address] [place] [address] PCP - General Family Medicine 09/08/24 documented as of this encounter
--- OUTSIDE RECORDS SUMMARY | 2024-09-14 07:34 | XMS_ITS | Clinical Summary ---
Author Organization [facility] Address [facility] [place] [address] Care Team Providers Care Sales Development Representative Name Role Phone Sweetie Schaefer MD Primary Care Provider [phone] Source Comments [facility],non-owned Affiliates and Associated Physician Practices is amultiple site organization consisting of ambulatory clinics and hospital sitesin [place], [place], [place] and [place]. This disclosure is being madepursuant to the Care Everywhere program and may not contain all information available regarding this patient. Last updated 18.[facility] Allergies Active Allergy Reactions Criticality Noted Date [...] Comments Blood Pressure 114/78 08/14/2016 11:45 AM PLAYER MANAGER Pulse 89 08/14/2016 11:45 AM PLAYER MANAGER Temperature 36.8 C (98.3 F) 08/14/2016 11:45 AM PLAYER MANAGER Respiratory Rate 16 08/14/2016 11:45 AM PLAYER MANAGER Oxygen Saturation 99% 08/14/2016 11:45 AM PLAYER MANAGER Inhaled Oxygen Concentration - - Weight 78.9 kg (174 lb) 08/14/2016 11:45 AM PLAYER MANAGER Height 180.3 cm (5' 11 ) 08/14/2016 11:45 AM PLAYER MANAGER Body Mass Index 24.27 08/14/2016 11:45 AM PLAYER MANAGER Plan of Treatment Health Maintenance Due Date Last Done Comments COLOGUARD (AGES 45-75) - COL ON CA SCREENING 1976 COLON MONITORING 1976 COLONOSCOPY - COLON CA SCREENING 1976 CT COLONOGRAPHY - COLON CA SCREENING 1976 Colorectal Cancer Screening 1976 FIT - COLON CA SCREENING 1976 FLEX SIG - COLON CA SCREENING 1976 LIPID TESTING 1976 MAMMOGRAM 1976 PAP SMEAR 1976 HIV SCREENING 1991 HEPATITIS C SCREENING 08/11/1994 DTAP/TDAP/TD VACCINES (1 - Tdap) 1995 HEPATITIS B VACCINE (1 of 3 - 19+ 3-dose series) 1995 COVID-19 VACCINE ( - 2023-2 5 season) 2024 INFLUENZA VACCINE (#1) 2024 DEPRESSION SCREENING 08/03/2024 ZOSTER VACCINE (1 of 2) 2026 HIB VACCINE Aged Out No longer eligi ble based on patient's age to complete this topic HPV VACCINE Aged Out No longer eligi ble based on patient's age to complete this topic MENINGOCOCCAL (Group B) VACCINE Aged Out No longer eligible based on patient's age to complete this topic MENINGOCOCCAL VACCINE Aged Out No rosa isela laurence eligible based on patient's age to complete this topic PNEUMOCOCCAL VACCINE Aged Out No long er eligible based on patient's age to complete this topic Care Teams Sales Development Representative Relationship Specialty Start Date End Date Sweetie Schaefer MD [address] [place] [address] PCP - General Surgery 08/14/16
== END 2024-09-14 07:27 | disposition home or self-care (01) ==
LOC: CHSIMG 07:27
PROVIDERS: PCP Registered Nurse; Visit Provider Nurse Practitioner Family
DX: E04.2 Nontoxic multinodular goiter (principal)
CPT/HCPCS: 76536

== ENCOUNTER 2025-02-14 07:00 | Outpatient (CLI) | payer OTHER, SELFPAY ==
--- NOTE | ~2025-02-14 | US_ITS ---
BILATERAL LOWER EXTREMITY VENOUS ULTRASOUND Ordering provider: Yogesh Rick, FRUIT THINNER MACHINE OPERATOR History: . ankle edema with redness/rash . Comparison: None. FINDINGS: RIGHT LOWER EXTREMITY VEINS: --COMMON FEMORAL: Patent and free of thrombus. Normal compressibility, phasic flow and augmentation. --PROXIMAL SUPERFICIAL FEMORAL: Patent and free of thrombus. Normal compressibility, phasic flow and augmentation. --DISTAL SUPERFICIAL FEMORAL: Patent and free of thrombus. Normal compressibility, phasic flow and au gmentation. --POPLITEAL: Patent and free of thrombus. Normal compressibility, phasic flow and augmentation. --POSTERIOR TIBIAL: Patent and free of thrombus. Normal compressibility, phasic flow and augmentation . LEFT LOWER EXTREMITY VEINS: --COMMON FEMORAL: Patent and free of thrombus. Normal compressibility, phasic flow and augmentation. --PROXIMAL SUPERFICIAL FEMORAL: Patent and free of thrombus. Normal compressibility, phasic flow and augmentation. --DISTAL SUPERFICIAL FEMORAL: Patent and free of thrombus. Normal compressibility, phasic flow and au gmentation. --POPLITEAL: Patent and free of thrombus. Normal compressibility, phasic flow and augmentation. --POSTERIOR TIBIAL: Patent and free of thrombus. Normal compressibility, phasic flow and augmentation . IMPRESSION: Negative bilateral lower extremity venous US. No deep vein thrombosis. Reviewed, dictated and finalized at location A.
--- OUTSIDE RECORDS SUMMARY | 2025-02-14 07:04 | XMS_ITS | Clinical Summary ---
Author Organization [facility] [address] [place] [address] Care Team Providers Care Substation Design Draftsperson Name Role Phone Ramana Wilson MD Primary Care Provider Allergies Active Allergy Reactions Criticality Noted Date Comments Penicillins Anaphylaxis High 08/14/2016 Medications [id number] -Lmfolate-algal 27 mg iron-1.13 mg-581.92 mg capsule Take [...] Estarylla 0.25-35 mg-mcg per tablet 2 Active cyanocobalamin- cobamamide (B-12 Plus) 5,000-100 mcg tablet, sublingual 4 Active cyclobenzaprine (FLEXERIL) 5 mg tablet [address] (VOLTAREN) 50 mg EC tablet 4 Active magnesium gluconate (MAGONATE) 27.5 mg magne- sium (500 mg) tabletIndicatio ns:hypomagnesem ia Take 1 tablet (500 mg total) by mouth nightly Active phentermine (ADIPEX-P) 37.5 mg tablet Take 1 tablet (37.5 mg total) by mouth daily before breakfast 90 tablet 1 5 Active spironolactone (ALDACTONE) 100 mg tabletIndicatio ns:Multiple thyroid nodules,Hair loss TAKE ONE TABLET BY MOUTH DAILY 90 tablet 5 Active Active Problems Problem Noted Date Diagnosed Date Tinnitus of both ears 11/04/2024 Assessment & Plan (11/04/2024 9:34 AM CDT): Hearing test - mild hearing loss, protect hearing 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 TMJ dysfunction discussed and Handout provided, consider formal physical therapy if no improvement Medication side effects 02/24/2023 Hair loss 02/04/2022 Assessment & Plan (09/09/2024 9:52 AM CANDLE MOLDER MACHINE): Chronic problem. Will continue spironolactone 100mg daily. Assessment & Plan (03/09/2024 9:48 AM CDT): Chronic problem. No balding spots, thinning at temples. Will continue spironolactone 100mg daily. Assessment & Plan (05/19/2023 4:39 PM CDT): Continue spironolactone Assessment & Plan (11/12/2022 5:13 PM CDT): Continue spironolactone Assessment & Plan (06/17/2022 2:36 PM CANDLE MOLDER MACHINE): Continue aldactone Assessment & Plan (03/02/2022 7:18 PM CDT): Will check androgen levels including total testosterone, as well a DHEA and DHEA-S. Also will check serum cortisol levels. Will consider the use of spironolactone Class 1 obesity due to exces s calories without serious comorbidity with body mass index (BMI) of 31.0 to 31.9 in adult 02/04/2022 Assessment & Plan (09/09/2024 9:51 AM CANDLE MOLDER MACHINE): Chronic problem. Improved BMI to now 27.26 [...] phentermine Assessment & Plan (06/17/2022 2:36 PM CANDLE MOLDER MACHINE): Continue working on diet and exercise Will [...] 02/04/2022 Assessment & Plan (09/09/2024 9:51 AM CANDLE MOLDER MACHINE): Chronic problem. Reviewed US thyroid on 03/2024 on her phone; no changes since 03/2022 US. Will update TFTs today. Verified that she uses [employer]. Aware to check results/results letter in [employer]. Will contact by phone if needed. Assessment & Plan (03/09/2024 9:47 AM CDT): Reports newer issues with occasional dysphagia. No US imaging in chart; reports she had US completed pre-Covid at [facility]. Will sign release to get copy of record. Order entered to have US thyroid repeated at [facility]. Aware to call to schedule. Will send [employer] message if she's not rec'd results via [employer] after test completed (as we may not have rec'd results). Will update TFTs today. Verified that she uses [employer]. Aware to check results/results letter in [employer] [facility]. Will contact by phone if needed. Assessment & Plan (02/04/2022 4:06 PM CDT): Small, of no clinical significance Mixed hyperlipidemia 08/23/2021 Palpitations 08/30/2020 PVC's (premature ventricular contractions) 08/30 SOB (shortness of breath) 08/30/2020 Resolved Problems Problem Noted Date Diagnosed Date Resolved Date Dyslipidemia 08/30/2020 08/23/2021 Surgical History Surgery Date Site/Laterality Comments APPENDECTOMY [...] Maternal Grandfather Herman Cancer Maternal Grandmother Ernesto Stiegemeurvashi Atrial fibrillation Mother Kirill Lora Diabetes Mother Kirill Lora Hearing loss Mother Kirill Lora Hearing loss Paternal Grandfather Román Stroke Paternal Grandfather Román Cancer Paternal Grandmother Mena Relation Name Status Comments Daughter Daylin Father Silvestre Alive Maternal Grandfather Herman Maternal Grandmother Ernesto Stiegemeier Mother Kirill Lora Alive Paternal Grandfather Román [...] on file Legal Sex Female 12:06 PM CANDLE MOLDER MACHINE Gender Identity Not on file Sexual Orientation Not on file Obstetrics History Last Filed Vital Signs Vital Sign Reading Time Taken Comments Blood Pressure 121/81 11/04/2024 8:16 AM CDT Pulse 98 11/04/2024 8:16 AM CDT Temperature - - Respiratory Rate 18 11/04/2024 8:16 AM CDT Oxygen Saturation 99% 11/04/2024 8:16 AM CDT Inhaled Oxygen Concentration - - Weight 85.7 kg (189 lb) 11/04/2024 8:16 AM CDT Height 177.8 cm (5' 10) 11/04/2024 8:16 AM CDT Body Mass Index 27.12 11/04/2024 8:16 AM CDT Plan of Treatment Health Maintenance Due Date Last Done Comments Breast Cancer Screening-Mammogram 1976 Cervical Cancer Screening 1976 Colon Cancer Screening-Colonoscopy 1976 Hepatitis C Screening 1976 DTaP/Tdap/Td Vaccine (1 - Tdap) 1987 Hepatitis B Screening 1994 Regular Well Visit/Exam 18-64 1994 Depression Screening 02/04/2023 02/04/2022 Influenza Vaccine (#1) 2025 05/03/2017 Pneumococcal vaccine <65 Aged Out No longer eligible based on patient's age to complete this topic Insurance [facility] [id number] [facility] [id number] Care Teams Substation Design Draftsperson Relationship Specialty Start Date End Date Ramana Wilson MD [address] [place] [id number] PCP - General Family Medicine 09/08/24
--- OUTSIDE RECORDS SUMMARY | 2025-02-14 07:04 | XMS_ITS | Referral Summary ---
Author Organization [facility] [address] Address [address] [place] [address] Care Team Providers Care Signal Maintainer Name Role Phone Ramana Wilson MD Primary Care Provider Allergies Active Allergy Reactions Criticality Noted Date Comments Penicillins Anaphylaxis High 08/14/2016 Medications [id number] -Lmfolate-algal 27 mg iron-1.13 mg-581.92 mg capsule [...] 02/04/2022 Assessment & Plan (09/09/2024 9:52 AM HISTOLOGIC TECHNICIAN): Chronic problem. Will continue spironolactone 100mg daily. Assessment & Plan (03/09/2024 9:48 AM CDT): Chronic problem. No balding spots, thinning at temples. Will continue spironolactone 100mg daily. Assessment & Plan (05/19/2023 4:39 PM CDT): Continue spironolactone Assessment & Plan (11/12/2022 5:13 PM CDT): Continue spironolactone Assessment & Plan (06/17/2022 2:36 PM HISTOLOGIC TECHNICIAN): Continue aldactone Assessment & Plan (03/02/2022 7:18 PM CDT): Will check androgen levels including total testosterone, as well a DHEA and DHEA-S. Also will check serum cortisol levels. Will consider the use of spironolactone Class 1 obesity due to exces s calories without serious comorbidity with body mass index (BMI) of 31.0 to 31.9 in adult 02/04/2022 Assessment & Plan (09/09/2024 9:51 AM HISTOLOGIC TECHNICIAN): Chronic problem. Improved BMI to now 27.26 [...] phentermine Assessment & Plan (06/17/2022 2:36 PM HISTOLOGIC TECHNICIAN): Continue working on diet and exercise Will [...] 02/04/2022 Assessment & Plan (09/09/2024 9:51 AM HISTOLOGIC TECHNICIAN): Chronic problem. Reviewed US thyroid on 03/2024 on her phone; no changes since 03/2022 US. Will update TFTs today. Verified that she uses [employer]. Aware to check results/results letter in [employer]. Will contact by phone if needed. Assessment & Plan (03/09/2024 9:47 AM CDT): Reports newer issues with occasional dysphagia. No US imaging in chart; reports she had US completed pre-Covid at [facility]. Will sign release to get copy of record. Order entered to have US thyroid repeated at [facility]. Aware to call to schedule. Will send [employer] message if she's not rec'd results via [employer] after test completed (as we may not have rec'd results). Will update TFTs today. Verified that she uses [employer]. Aware to check results/results letter in [employer]. Will contact by phone if needed. Assessment [...] on file Legal Sex Female 12:06 PM HISTOLOGIC TECHNICIAN Gender Identity Not on file Sexual Orientation [...] 11/04/2024 8:16 AM CDT Plan of Treatment Not on file Insurance [facility] [id number] [facility] [id number] Care Teams Signal Maintainer Relationship Specialty Start Date End Date Ramana Wilson MD [address] [place] [id number] PCP - General Family Medicine 09/08/24
--- OUTSIDE RECORDS SUMMARY | 2025-02-14 07:06 | XMS_ITS | Clinical Summary ---
Author Organization [facility] Address [facility] [place] [address] Care Team Providers Care Mapper Name Role Phone Sweetie Schaefer MD Primary Care Provider [phone] Source Comments [facility],non-owned Affiliates and Associated Physician Practices is amultiple site organization consisting of ambulatory clinics and hospital sitesin [place], [place] and [place]. This disclosure is being madepursuant to the Care Everywhere program and may not contain all information available regarding this patient. Last updated 18.[facility] Allergies Active Allergy Reactions Criticality Noted Date Comments Penicillins 08/14/2016 Medications * Be aware that medications may not be up to date on this document. Alwaysverify current medications with the patient. No known medications Social History Tobacco Use Types Packs/Day Years Used Date Smoking Tobacco: Never Comments Unknown Sex and Gender Information Value Date Recorded Sex Assigned at Not on file Legal Sex Female 8:35 PM GENERATOR OPERATOR Gender Identity Not on file Sexual Orientation Not on file Last Filed Vital Signs Vital Sign Reading Time Taken Comments Blood Pressure 114/78 08/14/2016 11:45 AM GENERATOR OPERATOR Pulse 89 08/14/2016 11:45 AM GENERATOR OPERATOR Temperature 36.8 C (98.3 F) 08/14/2016 11:45 AM GENERATOR OPERATOR Respiratory Rate 16 08/14/2016 11:45 AM GENERATOR OPERATOR Oxygen Saturation 99% 08/14/2016 11:45 AM GENERATOR OPERATOR Inhaled Oxygen Concentration - - Weight 78.9 kg (174 lb) 08/14/2016 11:45 AM GENERATOR OPERATOR Height 180.3 cm (5' 11) 08/14/2016 11:45 AM GENERATOR OPERATOR Body Mass Index 24.27 08/14/2016 11:45 AM GENERATOR OPERATOR Plan of Treatment Health Maintenance Due Date Last Done Comments COLOGUARD (AGES 45-75) - COL ON CA SCREENING 1976 COLON MONITORING 1976 COLONOSCOPY - COLON CA SCREENING 1976 CT COLONOGRAPHY - COLON CA SCREENING 1976 Colorectal Cancer Screening 1976 FIT - COLON CA SCREENING 1976 FLEX SIG - COLON CA SCREENING 1976 LIPID TESTING 1976 MAMMOGRAM 1976 HIV SCREENING 1991 HEPATITIS C SCREENING 08/11/1994 DTAP/TDAP/TD VACCINES (1 - Tdap) 1995 HEPATITIS B VACCINE (1 of 3 - 19+ 3-dose series) 1995 COVID-19 VACCINE (1 - 2023-2 5 season) 2024 DEPRESSION SCREENING 08/03/2024 INFLUENZA VACCINE (#1) 2025 ZOSTER VACCINE (1 of 2) 2026 HIB VACCINE Aged Out No longer eligi ble based on patient's age to complete this topic HPV VACCINE Aged Out No longer eligi ble based on patient's age to complete this topic MENINGOCOCCAL (Group B) VACC INE SHARED DECISION-MAKING Aged Out No longer eligibl e based on patient's age to complete this topic MENINGOCOCCAL GROUPS A/C/Y/W VACCINE Aged Out No longer eligible b ased on patient's age to complete this topic PNEUMOCOCCAL VACCINE Aged Out No long er eligible based on patient's age to complete this topic Insurance [employer] Care Teams Mapper Relationship Specialty Start Date End Date Sweetie Schaefer MD [address] [place] [address] PCP - General Surgery 08/14/16
== END 2025-02-14 07:01 | disposition home or self-care (01) ==
PROVIDERS: PCP Registered Nurse; Visit Provider Registered Nurse
DX: R60.0 Localized edema (principal)
CPT/HCPCS: 93970

== ENCOUNTER 2025-03-06 07:15 | Outpatient (CLI) | payer OTHER, SELFPAY ==
--- OUTSIDE RECORDS SUMMARY | 2025-03-06 07:23 | XMS_ITS | Referral Summary ---
Author Organization [facility] [place] [address] Address [address] [place] [address] Care Team Providers Care Adjunct Professor Of Law Name Role Phone Ramana Wilson MD Primary Care Provider Allergies Active Allergy Reactions Criticality Noted Date Comments Penicillins Anaphylaxis High 08/14/2016 Medications [id number]-de oc-Rtblarrj-p lgal 27 mg iron-1.13 mg-581.92 mg capsule Take by mouth Active cetirizine (ZyrTEC) 10 mg tablet Take 1 tablet (10 mg total) by mouth daily Active levonorgestre L (MIRENA) IUD Mirena 20 mcg/24 hours (6 yrs) 52 mg intrauterine device Take 1 device by intrauterine route. Active metoprolol XL (TOPROL-XL) 25 mg extended release tablet Take 1 tablet (25 mg total) by mouth daily Active Estarylla 0.25-35 mg-mcg per tablet 02/06/20 22 Active cyanocobalami n-cobamamide (B-12 Plus) 5,000-100 mcg tablet, sublingual 02/15/20 24 Active cyclobenzapri ne (FLEXERIL) 5 mg tablet 01/21/[address] (VOLTAREN) 50 mg EC tablet 07/25/20 24 Active magnesium gluconate (MAGONATE) 27.5 mg magne- sium (500 mg) tabletIndicat ions:hypomagn esemia Take 1 tablet (500 mg total) by mouth nightly Active phentermine (ADIPEX-P) 37.5 mg tabletIndicat ions:Multiple thyroid nodules,Hair loss Take 1 tablet (37.5 mg total) by mouth daily before breakfast 90 tablet 1 02/16/20 25 Active spironolacton e (ALDACTONE) 100 mg tabletIndicat ions:Multiple thyroid nodules,Hair loss Take 1 tablet (100 mg total) by mouth daily 90 tablet 3 02/16/20 25 Active phentermine (ADIPEX-P) 37.5 mg tablet Take 1 tablet (37.5 mg total) by mouth daily before breakfast 90 tablet 1 09/09/19 25 025 Discontinued spironolacton e (ALDACTONE) 100 mg tabletIndicat ions:Multiple thyroid nodules,Hair loss TAKE ONE TABLET BY MOUTH DAILY 90 tablet 11/25/19 25 025 Discontinued phentermine (ADIPEX-P) 37.5 mg tabletIndicat ions:Multiple thyroid nodules,Hair loss TAKE ONE (1) TABLET BY MOUTH DAILY BEFORE BREAKFAST 90 tablet 1 02/16/20 25 025 Discontinued(R eorder) spironolacton e (ALDACTONE) 100 mg tabletIndicat ions:Multiple thyroid nodules,Hair loss TAKE ONE TABLET BY MOUTH DAILY 90 tablet 02/16/20 25 025 Discontinued(R eorder) Active Problems Problem Noted Date Diagnosed Date Tinnitus of both ears 11/04/2024 Assessment & Plan (11/04/2024 9:34 AM CDT): Hearing test - mild hearing loss, protect hearing 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 TMJ dysfunction discussed and Handout provided, consider formal physical therapy if no improvement Medication side effects 02/24/2023 Hair loss 02/04/2022 Assessment & Plan (09/09/2024 9:52 AM PHARM[facility]IST [facility]): Chronic problem. Will continue spironolactone 100mg daily. Assessment & Plan (03/09/2024 9:48 AM CDT): Chronic problem. No balding spots, thinning at temples. Will continue spironolactone 100mg daily. Assessment & Plan (05/19/2023 4:39 PM CDT): Continue spironolactone Assessment & Plan (11/12/2022 5:13 PM CDT): Continue spironolactone Assessment & Plan (06/17/2022 2:36 PM [facility]ARM[facility]IST [facility]): Continue aldactone Assessment & Plan (03/02/2022 7:18 PM CDT): Will check androgen levels including total testosterone, as well a DHEA and DHEA-S. Also will check serum cortisol levels. Will consider the use of spironolactone Class 1 obesity due to exces s calories without serious comorbidity with body mass index (BMI) of 31.0 to 31.9 in adult 02/04/2022 Assessment & Plan (09/09/2024 9:51 AM PHARMACIST [facility]): Chronic problem. Improved BMI to now 27.26 [...] phentermine Assessment & Plan (06/17/2022 2:36 PM [facility]): Continue working on diet and exercise Will [...] 02/04/2022 Assessment & Plan (09/09/2024 9:51 AM [facility]ARM[facility]IST [facility]): Chronic problem. Reviewed US thyroid on 03/2024 on her phone; no changes since 03/2022 US. Will update TFTs today. Verified that she uses [employer]. Aware to check results/results letter in [employer]. Will contact by phone if needed. Assessment & Plan (03/09/2024 9:47 AM CDT): Reports newer issues with occasional dysphagia. No US imaging in chart; reports she had US completed pre-Covid at [facility]. Will sign release to get copy of record. Order entered to have US thyroid repeated at [facility]. Aware to call to schedule. Will send [employer] message if she's not rec'd results via [employer] after test completed (as we may not have rec'd results). Will update TFTs today. Verified that she uses [employer]. Aware to check results/results letter in [employer]. Will contact by phone if needed. Assessment [...] on file Legal Sex Female 12:06 PM [facility]ARM[facility]IST [facility] Gender Identity Not on file Sexual Orientation [...] Plan of Treatment Not on file Insurance [facility] [id number] [facility] [id number] Care Teams Adjunct Professor Of Law Relationship Specialty Start Date End Date Ramana Wilson MD [address] [place] [address] [phone] PCP - General Family Medicine 09/08/24
--- OUTSIDE RECORDS SUMMARY | 2025-03-06 07:25 | XMS_ITS | Continuity of Care Document ---
Author Organization [facility] Address [address] [place] [address] Phone Care Team Providers Care Verification Engineer Name Role Phone Sam PT,MPT,ATC, Cruz Unavailable Unavai lable Procedures Procedure Date Therapeutic Activities Neuromuscular Re-Ed Therapeutic Exercise Therapeutic Activities Neuromuscular Re-Ed Therapeutic Exercise Therapeutic Activities Neuromuscular Re-Ed Therapeutic Exercise Progress Note Therapeutic Activities Neuromuscular Re-Ed Therapeutic Exercise Therapeutic Activities Neuromuscular Re-Ed Therapeutic Exercise Therapeutic Activities Neuromuscular Re-Ed Therapeutic Exercise Therapeutic Activities Neuromuscular Re-Ed Therapeutic Exercise Therapeutic Activities Neuromuscular Re-Ed Therapeutic Exercise Therapeutic Activities Neuromuscular Re-Ed Therapeutic Exercise Therapeutic Activities Neuromuscular Re-Ed Therapeutic Exercise Therapeutic Activities Neuromuscular Re-Ed Therapeutic Exercise PT Evaluation Moderate Complexity Therapeutic Activities Neuromuscular Re-Ed Therapeutic Exercise Manual Therapy Hot or Cold Pack Advance Directives Directive Yes / No Effective Date File Name No Information Encounters Encounter Description Practice Location Reason(s) For Visit Diagnoses Date Provider Providers Copied on Encounter [facility] [facility], [place], [place], [id number], tel:[phone] [place] [facility] [place] [place], [place], [place], [id number], tel:[phone] [place] No Information 4 [place]. . Referring Provider: [address], [place], [address]. tel:[phone] [facility] [facility], [place], [place], [id number], tel:[phone] [place] No Information 4 [place]. . Referring Provider: [address], [place], [address]. tel:[phone] [facility] [facility], [place], [place], [id number], tel:[phone] [place] No Information 4 [place]. . Referring Provider: [address], [place], [address]. tel:[phone] [facility], [place], [place], [id number], tel:[phone] [place] No Information 4 [place]. . Referring Provider: [address], [place], [address]. tel:[phone] [facility], [place], [place], [id number], [place] tel:[phone] [place] No Information Aug-2 2-202 4 [place]. . Referring Provider: [address], [place], [address]. tel:[phone] [facility], [address], [place], [place], [id number], [place] tel:[phone] [place] No Information Aug-2 1-202 4 [place]. . Referring Provider: G[address], [place], [address]. tel:[phone] [facility] [address] [facility], [place], [place], [id number], [place] tel:[phone] [place] No Information Aug-1 5-202 4 [place]. . Referring Provider: [address], [place], [address]. tel:[phone] [facility], [address], [place], [place], [id number], [place] tel:[phone] [place] No Information Aug-1 4-202 4 [place]. . Referring Provider: [address], [place], [address]. tel:[phone] [facility] [address] [facility], [place], [place], [id number], [place] tel:[phone] [place] No Information Aug-0 8-202 4 [place]. . Referring Provider: [address], [place], [address]. tel:[phone] [facility], [place], [place], [id number], [place] tel:[phone] [place] No Information Aug-0 7-202 4 [place]. . Referring Provider: Ginny [address], [place], [address]. tel:[phone] [facility], [address], [place], [place], [id number], tel:[phone] [place] No Information 4 [place] [place]. . Referring Provider: Mustapha Avalos, [address], [place], [address]. tel:[phone] [facility] [address], [place], [place], [id number], tel:[phone] [place] No Information [address] [place]. [address] [place] [address], [address], [place], [address], [place]. tel:[phone] Referring Provider: Mustapha Avalos, [address], [place], [address]. tel:[phone] Family History Family Member Type Diagnosis Age At Onset No Information Payers Payer name Insurance type Covered alliance party ID Authorveronica chappell(s) [employer] CI [id number] Social History Type Description Quantity Date Captured Comments Sex Female Smoking Status No Information Chief Complaint And Reason For Visit No Information Reason For Referral Reason For Referral No Information History Of Present Illness Encounter Date Complaint History Of Prese nt Illness No Information Functional Status Date Functional Assessmen t No Information Instructions Date Instruction Additional Infor mation No Information Assessments Type Assessment Date No Information Patient Care Teams Name Effective Dates (start - stop) Status Members No Information
--- OUTSIDE RECORDS SUMMARY | 2025-03-06 07:25 | XMS_ITS | Clinical Summary ---
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 Will continue spironolactone 100mg daily. Assessment & Plan (03/09/2024 9:48 AM CDT): Chronic problem. No balding spots, thinning at temples. Will continue spironolactone 100mg daily. Assessment & Plan (05/19/2023 4:39 PM CDT): Continue spironolactone Assessment & Plan (11/12/2022 5:13 PM CDT): Continue spironolactone Assessment & Plan (06/17/2022 2:36 PM CD MANUFACTURING SUPERVISOR): Continue aldactone Assessment & Plan (03/02/2022 7:18 PM CDT): Will check androgen levels including total testosterone, as well a DHEA and DHEA-S. Also will check serum cortisol levels. Will consider the use of spironolactone Class 1 obesity due to exces s calories without serious comorbidity with body mass index (BMI) of 31.0 to 31.9 in adult 02/04/2022 Assessment & Plan (09/09/2024 9:51 AM CD MANUFACTURING SUPERVISOR): Chronic problem. Improved BMI to now 27.26 [...] phentermine Assessment & Plan (06/17/2022 2:36 PM CD MANUFACTURING SUPERVISOR): Continue working on diet and exercise Will [...] 02/04/2022 Assessment & Plan (09/09/2024 9:51 AM CD MANUFACTURING SUPERVISOR): Chronic problem. Reviewed US thyroid on 03/2024 on her phone; no changes since 03/2022 US. Will update TFTs today. Verified that she uses [employer]. Aware to check results/results letter in [employer]. Will contact by phone if needed. Assessment & Plan (03/09/2024 9:47 AM CDT): Reports newer issues with occasional dysphagia. No US imaging in chart; reports she had US completed pre-Covid at [facility]. Will sign release to get copy of record. Order entered to have US thyroid repeated at [facility]. Aware to call to schedule. Will send [employer] message if she's not rec'd results via [employer] after test completed (as we may not have rec'd results). Will update TFTs today. Verified that she uses [employer]. Aware to check results/results letter in [employer]. Will contact by phone if needed. Assessment [...] Alive Maternal Grandfather Herman Maternal Grandmother Ernesto Samayoaier Mother Kirill Lora Alive Paternal Grandfather Román [...] on file Legal Sex Female 12:06 PM CD MANUFACTURING SUPERVISOR Gender Identity Not on file Sexual Orientation [...] patient's age to complete this topic Insurance [facility] [id number] [facility] [id number] Care Teams Senior Site Manager Relationship Specialty Start Date End Date Ramana Wilson MD [address] [place] [address] PCP - General Family Medicine 09/08/24
--- OUTSIDE RECORDS SUMMARY | 2025-03-06 07:25 | XMS_ITS | Clinical Summary ---
Author Organization [facility] Address [facility] [place] [address] Care Team Providers Care Ski Patrol Officer Name Role Phone Sweetie Schaefer MD Primary Care Provider [phone] Source Comments [facility],non-owned Affiliates and Associated Physician Practices is amultiple site organization consisting of ambulatory clinics and hospital sitesin [place], [place], [place] and [place]. This disclosure is being madepursuant to the Care Everywhere program and may not contain all information available regarding this patient. 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 Gender Identity Not on file Sexual Orientation Not on file Last Filed Vital Signs Vital Sign Reading Time Taken Comments Blood Pressure 114/78 08/14/2016 11:45 AM AUTO HEATER MECHANIC Pulse 89 08/14/2016 11:45 AM AUTO HEATER MECHANIC Temperature 36.8 C (98.3 F) 08/14/2016 11:45 AM AUTO HEATER MECHANIC Respiratory Rate 16 08/14/2016 11:45 AM AUTO HEATER MECHANIC Oxygen Saturation 99% 08/14/2016 11:45 AM AUTO HEATER MECHANIC Inhaled Oxygen Concentration - - Weight 78.9 kg (174 lb) 08/14/2016 11:45 AM AUTO HEATER MECHANIC Height 180.3 cm (5' 11) 08/14/2016 11:45 AM AUTO HEATER MECHANIC Body Mass Index 24.27 08/14/2016 11:45 AM AUTO HEATER MECHANIC Plan of Treatment Health Maintenance Due Date [...] complete this topic Insurance ANTH Care Teams Ski Patrol Officer Relationship Specialty Start Date End Date Sweetie Schaefer MD [address] [place] [address] PCP - General Surgery 08/14/16
[2025-03-06 09:57] LABS: Free T3 4.05 pg/mL (2.18-3.98)
[2025-03-06 10:12] LABS: Thyroid Stimulating Hormone 3.860 uIU/mL (0.465-4.680)
[2025-03-07 07:09] LABS: FSH 2.0 mIU/mL (.)
[2025-03-11 04:07] LABS: Free Testosterone (Direct) <0.2 pg/mL (0.0-4.2)
== END 2025-03-06 07:16 | disposition home or self-care (01) ==
LOC: CHSLAB 07:17
PROVIDERS: PCP Registered Nurse; Visit Provider Registered Nurse
DX: R63.8 Other symptoms and signs concerning food and fluid intake (principal)
CPT/HCPCS: 36415; 83001; 84270; 84402; 84403; 84436; 84443; 84481